=== PATIENT | male | born 1965 | race American Indian/Alaskan Native ===

== ENCOUNTER 2017-01-05 14:41 | Outpatient (CLI) | payer BC ==
--- NOTE | 2017-01-05 15:46 | XRay Report ---
Cervical spine: Pain. Spondylosis is noted anteriorly from the anterior margin of C4-T1 and posteriorly from the inferior margin of C5-C6. There is significant narrowing of the C5-6 interspace with mild narrowing at C6-7. The vertebral height and alignment is maintained and the bones are adequately mineralized. No prevertebral swelling. 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
== END 2017-01-05 14:42 | disposition home or self-care (01) ==
LOC: SPVIMAG 14:41
PROVIDERS: ATTEND Internal Medicine
DX: M47.892 Other spondylosis, cervical region (principal); E29.1 Testicular hypofunction
CPT/HCPCS: 72040